=== PATIENT | female | born 1995 | race Caucasian/White ===

== ENCOUNTER 2016-06-14 14:05 | Emergency (ER) | payer OTHER ==
[~2016-06-14] VITALS: Ht 165.1 cm; Wt 61.2 kg
[2016-06-14 14:23] VITALS: BP 116/81
== END 2016-06-14 17:24 | disposition home or self-care (01) ==
LOC: ER 14:12
DX: S09.90XA Unspecified injury of head, initial encounter (principal); R42 Dizziness and giddiness; J45.909 Unspecified asthma, uncomplicated; W01.198A Fall on same level from slipping, tripping and stumbling with subsequent striking against other object, initial encounter; Y93.89 Activity, other specified; Y92.89 Other specified places as the place of occurrence of the external cause; Y99.9 Unspecified external cause status
CPT/HCPCS: 70450-TC; A4606; Z7610